=== PATIENT | female | born 1995 ===

== ENCOUNTER 2019-02-05 18:13 | Observation (INO) | payer MEDICAID ==
[2019-02-05] MEDS ORDERED: Tranexamic Acid 1,000 MG in Sodium Chloride 0.9% 100 ML IV PRN (18:35)
[2019-02-05] MEDS ORDERED: Sodium Chloride 0.9% 2.5 ML Syringe FLUSH PRN (18:35)
[2019-02-05] MEDS ORDERED: Methylergonovine 0.2 MG/1 ML Amp IM PRN (18:35)
[2019-02-05] MEDS ORDERED: Misoprostol 200 MCG Tab PO PRN (18:35)
[2019-02-05] MEDS ORDERED: Sodium Chloride 0.9% 10 ML Syringe FLUSH PRN (18:35)
[2019-02-05] MEDS ORDERED: Misoprostol 25 MCG (1/4 of 100 MCG) Tab PO PRN (18:35)
[2019-02-05] MEDS ORDERED: Lidocaine 1% 50 ML MDV INJECT PRN (18:35)
[2019-02-05] MEDS ORDERED: Sodium Chloride 0.9% 10 ML SDV IV PRN (18:35)
[2019-02-05] MEDS ORDERED: Nalbuphine 10 MG/1 ML Vial IVPUSH PRN (18:35)
[2019-02-05] MEDS ORDERED: Terbutaline 1 MG/ML SDV SUBCUT PRN (18:35)
[2019-02-05] MEDS ORDERED: Carboprost Tromethamine 250 MCG/1 ML Amp IM PRN (18:35)
[2019-02-05] MEDS ORDERED: Butorphanol 1 MG/ML SDV IVPUSH PRN (18:35)
[2019-02-05] MEDS ORDERED: Misoprostol 25 MCG (1/4 of 100 MCG) Tab VAG PRN (18:35)
[2019-02-05] MEDS ORDERED: Ondansetron 4 MG/2 ML SDV IV PRN (18:35)
[2019-02-05] MEDS ORDERED: Water For Irrigation,Sterile 1,000 ML Container IRR PRN (18:35)
[2019-02-05] MEDS ORDERED: Oxytocin/0.9 % Sodium Chloride 30 UNIT/500 ML BAG IV SCH ×2 (18:45)
--- NOTE | 2019-02-05 21:49 | PCM.LDHP ---
L&D History of Present Illness - General Date of Service: 02/05/19 Admit Problem/Dx: Patient Status Order with Admit Dx/Problem 02/05/19 18:35 Patient Status [ADT] Routine Admission Diagnosis/Problem Admission Diagnosis/Problem - planned Source of Information: Patient History Limitations: Reports: No Limitations - History of Present Illness Improves with: Reports: None Worsens with: Reports: None Associated Symptoms: Reports: N - Related Data Allergies/Adverse Reactions: Allergies Allergy/AdvReac Type Severity Reaction Status Date / Time No Known Allergies Allergy Verified 02/05/19 18:34 H&P Review of Systems - Review of Systems: Review Of Systems: See Below General: Reports: No Symptoms HEENT: Reports: No Symptoms Pulmonary: Reports: No Symptoms Cardiovascular: Reports: No Symptoms Gastrointestinal: Reports: No Symptoms Genitourinary: Reports: No Symptoms Musculoskeletal: Reports: No Symptoms Skin: Reports: No Symptoms Psychiatric: Reports: No Symptoms Neurological: Reports: No Symptoms Hematologic/Lymphatic: Reports: No Symptoms Immunologic: Reports: No Symptoms L&D Exam - Exam Exam: See Below - Vital Signs Weight: 80.286 kg - OB Specific Fundal Height In cm: 37 Contraction Intensity: Mild to Moderate Movement: Active Heart Tones: Present Presentation: Vertex - Cary Score Cary Score Cervix Position: Midposition Cary Score Consistency: Soft Cary Score Effacement: 51-70% Cary Score Dilation: 1-2 cm - Exam General: Alert, Oriented HEENT: PERRLA, Conjunctiva Clear, EACs Clear, EOMI, Hearing Intact, Mucosa Moist & [place], Nares Patent, Normal Nasal Septum, Posterior Pharynx Clear, TMs Clear Neck: Supple, Trachea Midline Lungs: Clear to Auscultation, Normal Respiratory Effort Cardiovascular: Regular Rate, Regular Rhythm GI/Abdominal Exam: Normal Bowel Sounds, Soft, Non-Tender, No Organomegaly, No Distention, No Abnormal Bruit, No Mass, Pelvis Stable Rectal Exam: Normal Exam, Normal Rectal Tone Genitourinary: Normal external exam, Normal bimanual exam, Normal speculum exam Back Exam: Normal Inspection, Full Range of Motion Extremities: Normal Inspection, Normal Range of Motion, Non-Tender, No Pedal Edema, Normal Capillary Refill Skin: Warm, Dry, Intact Neurological: Cranial Nerves Intact, Reflexes Equal Bilateral Psychiatric: Alert, Normal Affect, Normal Mood - Patient Data Lab Results Last 24 hrs: Laboratory Results - last 24 hr 02/05/19 02/05/19 Range/Units 18:58 18:58 WBC 7.98 (4.0-11.0) K/uL RBC 4.25 L (4.30-5.90) M/uL Hgb 12.5 (12.0-16.0) g/dL Hct 38.8 (36.0-46.0) % MCV 91.3 (80.0-98.0) fL MCH 29.4 (27.0-32.0) pg MCHC 32.2 (31.0-37.0) g/dL RDW Std Deviation 50.7 (28.0-62.0) fl RDW Coeff of Brenna 15 (11.0-15.0) % Plt Count 168 (150-400) K/uL MPV 14.00 H (7.40-12.00) fL Nucleated RBC % 0.0 /100WBC Nucleated RBCs # 0 K/uL Blood Type O POSITIVE Antibody Screen NEGATIVE Result Diagrams: 02/05/19 18:58 Problem List Initiated/Reviewed/Updated: Yes Orders Last 24hrs: Active Orders 24 hr Category Date Time Status Patient Status [ADT] Routine ADT 02/05/19 18:35 Active Communication Order [RC] ASDIRECTED Care 02/05/19 18:35 Active Communication Order [RC] ASDIRECTED Care 02/05/19 18:35 Active Communication Order [RC] ASDIRECTED Care 02/05/19 18:35 Active Heart Tones [RC] CONTINUOUS Care 02/05/19 18:35 Active Non Stress Test [RC] PER UNIT ROUTINE Care 02/05/19 18:35 Active May Shower [RC] ASDIRECTED Care 02/05/19 18:35 Active Notify Provider [RC] PRN Care 02/05/19 18:35 Active Notify Provider [RC] PRN Care 02/05/19 18:35 Active Notify Provider [RC] PRN Care 02/05/19 18:35 Active Notify Provider [RC] STAT Care 02/05/19 18:35 Active Oxygen Therapy [RC] ASDIRECTED Care 02/05/19 18:35 Active Up ad Lynn [RC] ASDIRECTED Care 02/05/19 18:35 Active Vaginal Exam [RC] PRN Care 02/05/19 18:35 Active Vital Signs [RC] PER UNIT ROUTINE Care 02/05/19 18:35 Active Regular Diet [DIET] Diet 02/05/19 Breakfast Active Butorphanol [Stadol] Med 02/05/19 18:35 Active 1 mg IVPUSH Q1H PRN Carboprost Tromethamine [Hemabate DS] Med 02/05/19 18:35 Active 250 mcg IM ASDIRECTED PRN Lactated Ringers [Ringers, Lactated] 1,000 ml Med 02/05/19 18:45 Active IV ASDIRECTED Lidocaine 1% [Xylocaine 1%] Med 02/05/19 18:35 Active 50 ml INJECT ONETIME PRN Methylergonovine [Methergine] Med 02/05/19 18:35 Active 0.2 mg IM ASDIRECTED PRN Nalbuphine [Nubain] Med 02/05/19 18:35 Active 10 mg IVPUSH Q1H PRN Ondansetron [Zofran] Med 02/05/19 18:35 Active 4 mg IV Q4H PRN Oxytocin/0.9 % Sodium Chloride [Oxytocin 30 Unit/500 ML Med 02/05/19 18:45 Active -NS] 30 unit in 500 ml IV TITRATE Oxytocin/0.9 % Sodium Chloride [Oxytocin 30 Unit/500 ML Med 02/05/19 18:45 Active -NS] 30 unit in 500 ml IV TITRATE Sodium Chloride 0.9% [Normal Saline] Med 02/05/19 18:35 Active 10 ml IV ASDIRECTED PRN Sodium Chloride 0.9% [Saline Flush] Med 02/05/19 18:35 Active 10 ml FLUSH ASDIRECTED PRN Sodium Chloride 0.9% [Saline Flush] Med 02/05/19 18:35 Active 2.5 ml FLUSH ASDIRECTED PRN Terbutaline [Brethine] Med 02/05/19 18:35 Active 0.25 mg SUBCUT ASDIRECTED PRN Tranexamic Acid [Cyklokapron] 1,000 mg Med 02/05/19 18:35 Active Sodium Chloride 0.9% [Normal Saline] 100 ml IV ONETIME Water For Irrigation,Sterile [Sterile Water for Med 02/05/19 18:35 Active Irrigation] 1,000 ml IRR ASDIRECTED PRN miSOPROStol [Cytotec] Med 02/05/19 18:35 Active 200 mcg PO ONETIME PRN miSOPROStol [Cytotec] Med 02/05/19 18:35 Active 25 mcg PO Q4H PRN miSOPROStol [Cytotec] Med 02/05/19 18:35 Active 25 mcg VAG Q4H PRN Scalp Electrode [WOMSER] Per Unit Routine Oth 02/05/19 18:35 Ordered Medication Administration Instruction [OM.PC] Q3H Oth 02/05/19 18:45 Ordered Peripheral IV Insertion Adult [OM.PC] Routine Oth 02/05/19 18:35 Ordered Resuscitation Status Routine Resus Stat 02/05/19 18:35 Ordered Medication Orders Butorphanol Tartrate (Stadol) 1 mg IVPUSH Q1H PRN PRN Reason: Pain Carboprost Tromethamine (Hemabate Ds) 250 mcg IM ASDIRECTED PRN PRN Reason: Post Hemorrhage Lactated Ringer's (Ringers, Lactated) 1,000 mls @ 150 mls/hr IV ASDIRECTED HARI Oxytocin/Sodium Chloride (Oxytocin 30 Unit/500 Ml-Ns) 30 unit in 500 mls @ 500 mls/hr IV TITRATE HARI Oxytocin/Sodium Chloride (Oxytocin 30 Unit/500 Ml-Ns) 30 unit in 500 mls @ 2 mls/hr IV TITRATE HARI; Protocol Tranexamic Acid 1,000 mg/ (Sodium Chloride) 110 mls @ 660 mls/hr IV ONETIME PRN PRN Reason: Bleeding Lidocaine HCl (Xylocaine 1%) 50 ml INJECT ONETIME PRN PRN Reason: Laceration repair Methylergonovine Maleate (Methergine) 0.2 mg IM ASDIRECTED PRN PRN Reason: Post Hemorrhage Misoprostol (Cytotec) 200 mcg PO ONETIME PRN PRN Reason: Post Hemorrhage Misoprostol (Cytotec) 25 mcg PO Q4H PRN PRN Reason: Cervical Ripening Last Admin: 02/05/19 19:24 Dose: 25 mcg Misoprostol (Cytotec) 25 mcg VAG Q4H PRN PRN Reason: Cervical Ripening Last Admin: 02/05/19 19:29 Dose: 25 mcg Nalbuphine HCl (Nubain) 10 mg IVPUSH Q1H PRN PRN Reason: Pain (severe 7-10) Ondansetron HCl (Zofran) 4 mg IV Q4H PRN PRN Reason: Nausea/Vomiting Sodium Chloride (Saline Flush) 10 ml FLUSH ASDIRECTED PRN PRN Reason: Keep Vein Open Sodium Chloride (Saline Flush) 2.5 ml FLUSH ASDIRECTED PRN PRN Reason: Keep Vein Open Sodium Chloride (Normal Saline) 10 ml IV ASDIRECTED PRN PRN Reason: IV Use Sterile Water (Sterile Water For Irrigation) 1,000 ml IRR ASDIRECTED PRN PRN Reason: delivery Terbutaline Sulfate (Brethine) 0.25 mg SUBCUT ASDIRECTED PRN PRN Reason: Tacysystole
[2019-02-06] MEDS: Lactated Ringers 1,000 ML IV SCH ×2 (02:01→02:21)
[2019-02-06] MEDS ORDERED: Ropivacaine HCl/PF 100 ML ONE (02:52)
--- NOTE | 2019-02-06 03:21 | PCM.PREANE ---
Preanesthetic Assessment - Anesthesia/Transfusion/Family Hx Anesthesia History: Prior Anesthesia Without Reaction Family History of Anesthesia Reaction: No Transfusion History: No Prior Transfusion(s) - Review of Systems General: No Symptoms Pulmonary: No Symptoms Cardiovascular: No Symptoms Gastrointestinal: No Symptoms Neurological: No Symptoms - Physical Assessment Height: 1.65 m Weight: 80.286 kg ASA Class: 1 - Lab Values: Laboratory Last Values WBC 7.98 K/uL (4.0-11.0) 02/05/19 18:58 RBC 4.25 M/uL (4.30-5.90) L 02/05/19 18:58 Hgb 12.5 g/dL (12.0-16.0) 02/05/19 18:58 Hct 38.8 % (36.0-46.0) 02/05/19 18:58 MCV 91.3 fL (80.0-98.0) 02/05/19 18:58 MCH 29.4 pg (27.0-32.0) 02/05/19 18:58 MCHC 32.2 g/dL (31.0-37.0) 02/05/19 18:58 RDW Std Deviation 50.7 fl (28.0-62.0) 02/05/19 18:58 RDW Coeff of Brenna 15 % (11.0-15.0) 02/05/19 18:58 Plt Count 168 K/uL (150-400) 02/05/19 18:58 MPV 14.00 fL (7.40-12.00) H 02/05/19 18:58 Nucleated RBC % 0.0 /100WBC 02/05/19 18:58 Nucleated RBCs # 0 K/uL 02/05/19 18:58 Blood Type O POSITIVE 02/05/19 18:58 Antibody Screen NEGATIVE 02/05/19 18:58 - Allergies Allergies/Adverse Reactions: Allergies Allergy/AdvReac Type Severity Reaction Status Date / Time No Known Allergies Allergy Verified 02/05/19 18:34 - Acknowledgements Anesthesia Type Planned: Epidural Pt an Appropriate Candidate for the Planned Anesthesia: Yes Alternatives and Risks of Anesthesia Discussed w Pt/Guardian: Yes Pt/Guardian Understands and Agrees with Anesthesia Plan: Yes PreAnesthesia Questionnaire - Past Health History Medical/Surgical History: Denies Medical/Surgical History [employer] DEVEL[employer] History: Reports: - SUBSTANCE USE Smoking Status *Q: Never Smoker Second Hand Smoke Exposure: No Recreational Drug Use History: No - CURRENT (IN HOUSE) MEDS Current Meds: Current Medications Butorphanol Tartrate (Stadol) 1 mg IVPUSH Q1H PRN PRN Reason: Pain Carboprost Tromethamine (Hemabate Ds) 250 mcg IM ASDIRECTED PRN PRN Reason: Post Hemorrhage Lactated Ringer's (Ringers, Lactated) 1,000 mls @ 150 mls/hr IV ASDIRECTED HARI Last Admin: 02/06/19 02:21 Dose: 999 mls/hr Oxytocin/Sodium Chloride (Oxytocin 30 Unit/500 Ml-Ns) 30 unit in 500 mls @ 500 mls/hr IV TITRATE HARI Oxytocin/Sodium Chloride (Oxytocin 30 Unit/500 Ml-Ns) 30 unit in 500 mls @ 2 mls/hr IV TITRATE HARI; Protocol Tranexamic Acid 1,000 mg/ (Sodium Chloride) 110 mls @ 660 mls/hr IV ONETIME PRN PRN Reason: Bleeding Lidocaine HCl (Xylocaine 1%) 50 ml INJECT ONETIME PRN PRN Reason: Laceration repair Methylergonovine Maleate (Methergine) 0.2 mg IM ASDIRECTED PRN PRN Reason: Post Hemorrhage Misoprostol (Cytotec) 200 mcg PO ONETIME PRN PRN Reason: Post Hemorrhage Misoprostol (Cytotec) 25 mcg PO Q4H PRN PRN Reason: Cervical Ripening Last Admin: 02/05/19 19:24 Dose: 25 mcg Misoprostol (Cytotec) 25 mcg VAG Q4H PRN PRN Reason: Cervical Ripening Last Admin: 02/05/19 19:29 Dose: 25 mcg Nalbuphine HCl (Nubain) 10 mg IVPUSH Q1H PRN PRN Reason: Pain (severe 7-10) Last Admin: 02/06/19 02:01 Dose: 10 mg Ondansetron HCl (Zofran) 4 mg IV Q4H PRN PRN Reason: Nausea/Vomiting Sodium Chloride (Saline Flush) 10 ml FLUSH ASDIRECTED PRN PRN Reason: Keep Vein Open Sodium Chloride (Saline Flush) 2.5 ml FLUSH ASDIRECTED PRN PRN Reason: Keep Vein Open Sodium Chloride (Normal Saline) 10 ml IV ASDIRECTED PRN PRN Reason: IV Use Sterile Water (Sterile Water For Irrigation) 1,000 ml IRR ASDIRECTED PRN PRN Reason: delivery Terbutaline Sulfate (Brethine) 0.25 mg SUBCUT ASDIRECTED PRN PRN Reason: Tacysystole Discontinued Medications Ropivacaine (Naropin 0.2%) Confirm Administered Dose 100 mls @ as directed .ROUTE .[employer]-[facility] ONE Stop: 02/06/19 02:53
--- NOTE | 2019-02-06 03:26 | PCM.PRNOTE ---
- Free Text/Narrative Note: Anes Note Start 0258 Patient requests epidural for L&D. Risks and methods were discussed. Sitting position. Level L3-L4. Midline approach. Sterile technique, chloraprep to lumbare area. Sterile fenenstrated drape applied. Local 1% lido. #17 X 3 7/8 tuohy needle. Epidural space easily achieved single attempt with ease using HANNAH technique. Cath threaded 4 cm with ease. Sterile dressing applied. Test 0304 3 cc 1.5% lido with epi negative 0307 loading dose 10 cc 0.2% ropivicaine in slow divided doses. 0314 Pump started with same solution at 8 cc hr with 6 cc q 20 min prn bolus. Livier well. Patientreports excellent analgesia. Time with patient [id number] Archie Ross CRNA
[2019-02-06] MEDS ORDERED: Bisacodyl 10 MG Supp RECTAL PRN (04:20)
[2019-02-06] MEDS ORDERED: Witch Hazel Medicated Pads 40/Jar TOP PRN (04:20)
[2019-02-06] MEDS ORDERED: Ibuprofen 400 MG Tab PO PRN (04:20)
[2019-02-06] MEDS ORDERED: Docusate Sodium 100 MG Cap PO PRN (04:20)
[2019-02-06] MEDS ORDERED: Lanolin 100% Cream 7 GM Tube TOP PRN (04:20)
[2019-02-06] MEDS ORDERED: oxyCODONE 5 MG Tab PO PRN (04:20)
[2019-02-06] MEDS ORDERED: Acetaminophen 500 MG Tab PO PRN ×2 (04:20)
[2019-02-06] MEDS ORDERED: Benzocaine/Menthol 20%-0.5% Spray 78 GM Cannister TOP PRN (04:20)
--- NOTE | 2019-02-06 07:43 | PCM48HPAN ---
Post Anesthesia Note - EVALUATION WITHIN 48HRS OF ANESTHETIC Vital Signs in Normal Range: Yes Patient Participated in Evaluation: Yes Respiratory Function Stable: Yes Airway Patent: Yes Cardiovascular Function Stable: Yes Hydration Status Stable: Yes Pain Control Satisfactory: Yes Nausea and Vomiting Control Satisfactory: Yes Mental Status Recovered: Yes
--- NOTE | 2019-02-06 07:43 | PCM.POSTAN ---
POST ANESTHESIA ASSESSMENT - MENTAL STATUS Mental Status: Alert - RESPIRATORY Respiratory Status: Respiratory Rate WNL - CARDIOVASCULAR CV Status: Pulse Rate WNL, Slow Pulse Rate - GASTROINTESTINAL GI Status: No Symptoms - POST OP HYDRATION Hydration Status: Adequate & Stable
--- NOTE | 2019-02-06 10:09 | OR ---
SURGEON: Casey Brown MD DATE OF PROCEDURE: Yessica is a 23-year-old patient. She is para 1-0-0-1. She is followed in our clinic primarily by our nurse sales office assistant. She is admitted for elective induction. The patient did have 1 dose of Cytotec. She responded to that very well. She started having regular contraction, and she progressed according to the curve. She had epidural anesthesia for labor analgesia. She became complete-complete, and I did artificial rupture of the membrane at the time of the delivery with clear fluid. She commenced to push, and she accomplished normal spontaneous vaginal delivery of a male fetus. Cried immediately. score reported to be 7 and 9. The weight is not available. The placenta delivered spontaneous, complete, and intact without any problem. Estimated blood loss was 350 mL to 400 mL. heart rate was category 1 through the entire process of labor. There was no complication in the delivery and the labor process for this patient. YANETH / FERNIE /[id number]
[2019-02-06] MEDS: Ibuprofen 800 MG Tab PO PRN ×2 (10:53→16:28)
[2019-02-07] MEDS: Ibuprofen 800 MG Tab PO PRN (04:48)
[2019-02-07 08:21] VITALS: BP 127/75
--- NOTE | 2019-02-07 08:28 | PCM.DCSUM1 ---
Discharge Summary - Hospital Course Diagnosis: Stroke: No - Discharge Data Discharge Date: 02/07/19 Discharge Disposition: Home, Self-Care 01 Condition: Good - Patient Instructions Diet: Usual Diet as Tolerated Activity: As Tolerated Driving: Do Not Drive Showering/Bathing: May Shower Notify Provider of: Fever, Increased Pain, Nausea and/or Vomiting - Discharge Plan - Discharge Summary/Plan Comment DC Time >30 min.: Yes - General Info Date of Service: 02/07/19 Functional Status: Reports: Pain Controlled - Review of Systems General: Reports: No Symptoms HEENT: Reports: No Symptoms Pulmonary: Reports: No Symptoms Cardiovascular: Reports: No Symptoms Gastrointestinal: Reports: No Symptoms Genitourinary: Reports: No Symptoms Musculoskeletal: Reports: No Symptoms Skin: Reports: No Symptoms Neurological: Reports: No Symptoms Psychiatric: Reports: No Symptoms - Patient Data Vitals - Most Recent: Last Vital Signs Temp 37.3 C 02/07/19 08:20 Pulse 50 L 02/07/19 08:20 Resp 16 02/07/19 08:20 BP 127/75 02/07/19 08:20 Pulse Ox 96 02/07/19 08:20 Weight - Most Recent: 80.286 kg Lab Results - Last 24 hrs: Laboratory Results - last 24 hr 02/07/19 Range/Units 04:44 Hgb 12.3 (12.0-16.0) g/dL Hct 37.5 (36.0-46.0) % Med Orders - Current: Current Medications Acetaminophen (Tylenol Extra Strength) 500 mg PO Q4H PRN PRN Reason: Pain Acetaminophen (Tylenol Extra Strength) 1,000 mg PO Q4H PRN PRN Reason: Pain Benzocaine/Menthol (Dermoplast Pain Relief 20%-0.5% [place]) 78 gm TOP ASDIRECTED PRN PRN Reason: Perineal Comfort Measure Last Admin: 02/06/19 08:24 Dose: 1 can Bisacodyl (Dulcolax) 10 mg RECTAL ONETIME PRN PRN Reason: Constipation Butorphanol Tartrate (Stadol) 1 mg IVPUSH Q1H PRN PRN Reason: Pain Carboprost Tromethamine (Hemabate Ds) 250 mcg IM ASDIRECTED PRN PRN Reason: Post Hemorrhage Docusate Sodium (Colace) 100 mg PO BID PRN PRN Reason: Constipation Last Admin: 02/06/19 08:14 Dose: 100 mg Emollient Ointment (Lansinoh Hpa) 0 gm TOP ASDIRECTED PRN PRN Reason: Sore Nipples Last Admin: 02/06/19 08:22 Dose: 1 tube Lactated Ringer's (Ringers, Lactated) 1,000 mls @ 150 mls/hr IV ASDIRECTED HARI Last Admin: 02/06/19 02:21 Dose: 999 mls/hr Oxytocin/Sodium Chloride (Oxytocin 30 Unit/500 Ml-Ns) 30 unit in 500 mls @ 500 mls/hr IV TITRATE HARI Oxytocin/Sodium Chloride (Oxytocin 30 Unit/500 Ml-Ns) 30 unit in 500 mls @ 2 mls/hr IV TITRATE HARI; Protocol Tranexamic Acid 1,000 mg/ (Sodium Chloride) 110 mls @ 660 mls/hr IV ONETIME PRN PRN Reason: Bleeding Ibuprofen (Motrin) 400 mg PO Q4H PRN PRN Reason: Pain Ibuprofen (Motrin) 800 mg PO Q6H PRN PRN Reason: Pain Last Admin: 02/07/19 04:48 Dose: 800 mg Lidocaine HCl (Xylocaine 1%) 50 ml INJECT ONETIME PRN PRN Reason: Laceration repair Methylergonovine Maleate (Methergine) 0.2 mg IM ASDIRECTED PRN PRN Reason: Post Hemorrhage Misoprostol (Cytotec) 200 mcg PO ONETIME PRN PRN Reason: Post Hemorrhage Misoprostol (Cytotec) 25 mcg PO Q4H PRN PRN Reason: Cervical Ripening Last Admin: 02/05/19 19:24 Dose: 25 mcg Misoprostol (Cytotec) 25 mcg VAG Q4H PRN PRN Reason: Cervical Ripening Last Admin: 02/05/19 19:29 Dose: 25 mcg Nalbuphine HCl (Nubain) 10 mg IVPUSH Q1H PRN PRN Reason: Pain (severe 7-10) Last Admin: 02/06/19 02:01 Dose: 10 mg Ondansetron HCl (Zofran) 4 mg IV Q4H PRN PRN Reason: Nausea/Vomiting Oxycodone HCl (Oxycodone) 5 mg PO Q2H PRN PRN Reason: Pain Sodium Chloride (Saline Flush) 10 ml FLUSH ASDIRECTED PRN PRN Reason: Keep Vein Open Sodium Chloride (Saline Flush) 2.5 ml FLUSH ASDIRECTED PRN PRN Reason: Keep Vein Open Sodium Chloride (Normal Saline) 10 ml IV ASDIRECTED PRN PRN Reason: IV Use Sterile Water (Sterile Water For Irrigation) 1,000 ml IRR ASDIRECTED PRN PRN Reason: delivery Terbutaline Sulfate (Brethine) 0.25 mg SUBCUT ASDIRECTED PRN PRN Reason: Tacysystole Witch Yris (Tucks) 1 pad TOP ASDIRECTED PRN PRN Reason: comfort care Last Admin: 02/06/19 08:24 Dose: 1 tub Discontinued Medications Ropivacaine (Naropin 0.2%) Confirm Administered Dose 100 mls @ as directed .ROUTE .STK-MED ONE Stop: 02/06/19 02:53 Last Admin: 02/06/19 07:37 Dose: Not Given - Exam General: Reports: Alert, Oriented HEENT: Reports: Pupils Equal, Pupils Reactive, EOMI, Mucous Membr. Moist/[place] Neck: Reports: Supple Lungs: Reports: Clear to Auscultation, Normal Respiratory Effort Cardiovascular: Reports: Regular Rate, Regular Rhythm GI/Abdominal Exam: Normal Bowel Sounds, Soft, Non-Tender, No Organomegaly, No Distention, No Abnormal Bruit, No Mass, Pelvis Stable (Female) Exam: Normal External Exam, Normal Speculum Exam, Normal Bimanual Exam Rectal (Female) Exam: Normal Exam, Normal Rectal Tone Back Exam: Reports: Normal Inspection, Full Range of Motion Extremities: Normal Inspection, Normal Range of Motion, Non-Tender, No Pedal Edema, Normal Capillary Refill Skin: Reports: Warm, Dry, Intact Wound/Incisions: Reports: Healing Well Neurological: Reports: No New Focal Deficit Psy/Mental Status: Reports: Alert, Normal Affect, Normal Mood
== END 2019-02-07 13:30 | disposition home or self-care (01) ==
LOC: MW.OB 18:13
PROVIDERS: ADMIT Obstetrics & Gynecology; ATTEND Obstetrics & Gynecology
DX: O80 Encounter for full-term uncomplicated delivery (principal); Z37.0 Single live birth; Z3A.39 39 weeks gestation of pregnancy
CPT/HCPCS: 36415; 59025; 59409; 85014; 85018; 85027; 86850; 86900; 86901; A9270; J2300; J7120